=== PATIENT | female | born 1985 | race Caucasian/White ===

== ENCOUNTER → 2019-05-13 08:20 | Outpatient (BNVA) | payer OTHER, MEDICAID, SELFPAY | PROVIDERS: Family Provider Family Medicine; PCP Family Medicine; Referring Provider Obstetrics & Gynecology; Visit Provider Obstetrics & Gynecology | DX: R73.09 Other abnormal glucose (principal) | CPT/HCPCS: 36415; 82951; 82952 ==

== ENCOUNTER → 2019-05-27 11:29 | Outpatient (BNVA) | payer OTHER, SELFPAY | PROVIDERS: Family Provider Family Medicine; PCP Family Medicine; Visit Provider Obstetrics & Gynecology | DX: Z34.93 Encounter for supervision of normal pregnancy, unspecified, third trimester | CPT/HCPCS: 84315; 85027 ==

== ENCOUNTER → 2019-06-10 09:19 | Outpatient (BNVA) | payer OTHER, SELFPAY | PROVIDERS: Family Provider Family Medicine; PCP Family Medicine; Visit Provider Nurse Practitioner | DX: F41.1 Generalized anxiety disorder; F40.10 Social phobia, unspecified | CPT/HCPCS: 99213 ==

== ENCOUNTER → 2019-06-10 10:34 | Outpatient (BNVA) | payer OTHER, SELFPAY | PROVIDERS: Family Provider Family Medicine; PCP Family Medicine; Visit Provider Obstetrics & Gynecology Female Pelvic Medicine and Reconstructive Surgery | DX: Z01.89 Encounter for other specified special examinations (principal) | CPT/HCPCS: 84315 ==

== ENCOUNTER → 2019-06-24 10:06 | Outpatient (BNVA) | payer OTHER, SELFPAY | PROVIDERS: Family Provider Family Medicine; PCP Family Medicine; Visit Provider Obstetrics & Gynecology | DX: Z34.83 Encounter for supervision of other normal pregnancy, third trimester (principal) | CPT/HCPCS: 84315; 87081 ==

== ENCOUNTER → 2019-07-01 11:30 | Outpatient (BNVA) | payer OTHER, SELFPAY | PROVIDERS: Family Provider Family Medicine; PCP Family Medicine; Visit Provider Obstetrics & Gynecology | DX: Z01.89 Encounter for other specified special examinations (principal) | CPT/HCPCS: 84315 ==

== ENCOUNTER → 2019-07-08 10:11 | Outpatient (BNVA) | payer OTHER, SELFPAY | PROVIDERS: Family Provider Family Medicine; PCP Family Medicine; Visit Provider Obstetrics & Gynecology | DX: Z01.89 Encounter for other specified special examinations (principal) | CPT/HCPCS: 84315 ==

== ENCOUNTER → 2019-07-15 14:04 | Outpatient (BNVA) | payer OTHER, SELFPAY | PROVIDERS: Family Provider Family Medicine; PCP Family Medicine; Visit Provider Obstetrics & Gynecology | DX: Z01.89 Encounter for other specified special examinations (principal) | CPT/HCPCS: 84315 ==

== ENCOUNTER → 2019-07-19 10:15 | Outpatient (BNVA) | payer OTHER, MEDICAID, SELFPAY | PROVIDERS: Family Provider Family Medicine; PCP Family Medicine; Visit Provider Obstetrics & Gynecology | DX: O48.0 Post-term pregnancy (principal) | CPT/HCPCS: 76816; 76819; 84315 ==

== ENCOUNTER 2019-07-26 12:34 | Inpatient (IN) | payer OTHER, MEDICAID, SELFPAY ==
[2019-07-26] VITALS (53 sets, daily range): BP systolic 0–146; BP diastolic 0–91; PULSE 66–102; RESP 16–18; TEMP 37.1–37.7; BMI 31.4
--- NOTE | 2019-07-26 12:54 | US_ITS ---
WS: [id number] OB ultrasound for biophysical profile, 07/26/2019 Clinical Data: Comparison: OB ultrasound, 07/19/2019 Findings: There is a single intrauterine in the vertex presentation. The heart rate is 133 beat s per minute. The cervical length is 3.3 and it is closed. The placenta is anterior and fundal. The biophysical profile is 8 of 8 with normal scores for breathing, movement, posture and tone and amniotic fluid volume. US/US OB BPP wo [place]ST [address]250 Impression: 1. Single intrauterine in vertex presentation. 2. Biophysical profile 8 of 8. 3. heart rate 133 beats per minute.
--- NOTE | 2019-07-26 13:09 | P.ANESASSM_ITS ---
Pre-Anesthetic Assessment Pre-Anesthetic Assessment: Height/Weight: Height 1.68 m Pulse BP 102 H 125/90 07/26/19 12:51 07/26/19 12:51 Preop Diagnosis: labor pain Proposed Procedure: HITESH Was Beta Gretta taken within 24 hours: N/A Last Intake: 09:30 Social: Social History: No alcohol and No tobacco Exam: Pre-Anes Outpt Exam: alert, oriented x 3, clear to auscultation bilaterally and regular rate & rhythm Airway: Submandibular: WNL Cervical ROM: WNL MP: 2 Dentition: Full History/ROS: No significant history except as noted and No significant complaints Pulmonary: Pulmonary: None reported CV/HEM: CV/HEM: None reported : : None reported Hepatic: Hepatic: None reported GI: GI: GERD Comments: occasionally, not treated Metabolic: Metabolic: None reported Musc/skel: Musc/skel: None reported Neuropsych: Neuropsych: Anxiety Anesthetic Plan: ASA status: 2 Anesthesia: Anesthesia Evaluation and Regional (specify below) Other: HITESH Risk of > 500 ml blood loss (7ml/kg in c hildren): No PFSH Anesthesia PFSH: Social History Smoking and tobacco status: never smoked Alcohol intake: never Data Anesthesia Cardiac Studies: No Data to Display
[2019-07-26 14:18] LABS: Basophils % 0.4 %; Eosinophils % 0.1 %; Hematocrit 33.9 % (37.0-47.0); Hemoglobin 10.5 g/dL (11.5-15.3); Lymphocytes # 1.2 10^3/uL (0.8-4.8); Lymphocytes % 15.6 %; Mean Corpuscular Hemoglobin 26.8 pg (28.0-34.0); Mean Corpuscular Volume 86.5 fL (81-99); Mean Platelet Volume 11.4 fL (7.4-10.4); Monocytes # 0.6 10^3/uL (0.2-0.9); Monocytes % 7.6 %; Neutrophils # 5.8 10^3/uL (1.8-7.7); Neutrophils % 75.4 %; Nucleated Red Blood Cells % 0 %; Platelet Count 160 10^3/cmm (130-400); Red Blood Count 3.92 10^6/uL (4.1-5.3); Red Cell Distribution Width 20.6 % (12.1-15.1); White Blood Count 7.7 10^3/uL (4.0-10.0)
[2019-07-26] MEDS: oxytocin 30 UNIT/500 ML BAG IV (14:45)
[2019-07-26] MEDS: dextrose 5%-lactated ringers 1,000 ML 125 ML IV ×2 (14:46→22:51)
--- NOTE | 2019-07-26 19:13 | P.HP_ITS ---
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 She was seen in the office today by Dr. Frank for routine visit. Since she was 41 weeks today, he scheduled her to be induced later today. She was without complaints. She was reporting occasional contractions. She had denied any vaginal bleeding or leaking of fluid. She reported the baby had been moving well. Past Medical History: Significant for generalized anxiety disorder with social phobia. She denies any medical problems in the way of high blood pressure, diabetes, heart, lung, liver, or kidney problems. Past Surgical History: Patient has had a prior section on 01/15/2016. Family History: This is significant for hypertension in her mother and heart disease in her maternal grandmother. Social History: Denies tobacco, alcohol, or drug use. Present Details : 2 Para: 1 Labs Rubella: Immune RPR: Negative GBS: Negative Review of Systems Const: Denies: fever or chills ENMT: Denies: throat pain or nasal congestion Card: Denies: chest pain, palpitations or lightheadedness Resp: Denies: shortness of breath, productive cough, non-productive cough or wheezing GI: Denies: abdominal pain, nausea, vomiting or diarrhea : Reports: urinary frequency; Denies: painful urination, blood in urine, genital itching, vaginal bleeding or vaginal discharge Neuro: Denies: headache, dizziness or seizure-like activity Psych: Reports: depression (Controlled with medication); Denies: anxiety Endo: Denies: cold intolerance Cristian/Lymph: Denies: easy bruising or easy bleeding Medications/Allergies Allergies Allergy/AdvReac Type Severity Reaction Status Date / Time No Known Allergies Allergy Verified 07/26/19 15:03 Care BRIANNA Calculator Estimated Delivery Date Method Current WG Current Estimate 07/19/19 LMP (Certain) 41w 0d Expected Delivery Route/Plan Specific Issues/Plans Risk factors: Previous section (LTCS), Depression OB Visit Log Initial Weight: Not Recorded Date -?-?-?-?-?-?-?-?-?-?-?- EGA Weight BP Albumin -?-?-?-?-?-?--?-?-?-?-?-?- Glucose Nitrate -?-?--?-?-?-?-?-?-?-?-?-?- Blood Fun Ht PRES HR MVMT -?--?-?-?-?-?-?-?-?-?-?-?- Edema Dilation Effacement -?-?-?-?-?-?-?-?-?-?-?-?- Station 11/26/18 -?-?-?-?-?-?-?-?-?-?-?- 6w 3d -?-?-?-?-?-?-?-?-?--?-?-?- -?-?-?-?-?-?-?-?-?-?-?-?- -?-?-?-?-?-?-?-?-?-?-?-?- -?-?-?-?-?-?-?-?-?-?-?-?- 12/17/18 -?-?-?-?-?-?-?-?-?-?-?- 9w 3d 171 lb 140/80 neg neg -?-?-?-?-?-?-?-?-?-?-?-?- neg -?-?-?-?-?-?-?-?-?-?-?-?- -?-?-?-?-?-?-?-?--?-?-?-?- Hands: Face: Feet:0 not examined -?-?-?-?-?-?-?-?-?-?-?-?- 12/31/18 -?-?-?-?-?-?-?-?-?-?-?- 11w 3d 170 lb 122/74 neg neg -?-?-?-?-?-?-?-?-?-?-?-?- neg -?-?-?-?-?-?-?-?-?-?-?-?- 11 inconclusive 168 -?-?-?-?-?-?-?-?-?-?-?-?- Hands:0 Face:0 Feet:0 not examined not examined -?-?-?-?-?-?-?-?-?-?-?-?- 01/28/19 -?-?-?-?-?-?-?-?-?-?-?- 15w 3d 172 lb 135/85 neg neg -?-?-?-?-?-?-?-?-?-?-?-?- neg -?-?-?-?-?-?-?-?-?-?-?-?- 16 145 -?-?-?-?-?-?-?-?-?-?-?-?- Hands: Face: Feet:0 closed uneffaced -?-?-?-?-?-?-?-?-?-?-?-?- 03/11/19 -?-?-?-?-?-?-?-?-?-?-?- 21w 3d 178 lb 12.8 oz 120/64 neg neg -?-?-?-?-?-?-?-?-?-?-?-?- neg -?-?-?-?-?-?-?-?-?-?-?-?- 21 vertex 143 present -?-?-?-?-?-?-?-?-?-?-?-?- Hands:0 Face:0 Feet:0 not examined not examined -?-?-?-?-?-?-?-?-?-?-?-?- 04/08/19 -?-?-?-?-?-?-?-?-?-?-?- 25w 3d 183 lb 12.8 oz 120/80 neg neg -?-?-?-?-?-?-?-?-?-?-?-?- neg -?-?-?-?-?-?-?-?-?-?-?-?- 25 breech 145 present -?-?-?-?-?-?-?-?-?-?-?-?- Hands:0 Face:0 Feet:0 not examined not examined -?-?-?-?-?-?-?-?-?-?-?-?- 05/02/19 -?-?-?-?-?-?-?-?-?-?-?- 28w 6d 186 lb 118/80 trace neg -?-?-?-?-?-?-?-?-?-?-?-?- neg -?-?-?-?-?-?-?-?-?-?-?-?- 29 150 present -?-?-?-?-?-?-?-?-?-?-?-?- Hands:0 Face:0 Feet:0 -?-?-?-?-?-?-?-?-?-?-?-?- 05/13/19 -?-?-?-?-?-?-?-?-?-?-?- 30w 3d 189 lb 9.6 oz 122/76 neg neg -?-?-?-?-?-?-?-?-?-?-?-?- neg -?-?-?-?-?-?-?-?-?-?-?-?- 30 vertex 145 present -?-?-?-?-?-?-?-?-?-?-?-?- Hands:0 Face:0 Feet:0 not examined not examined -?-?-?-?-?-?-?-?-?-?-?-?- 05/27/19 -?-?-?-?-?-?-?-?-?-?-?- 32w 3d 188 lb 3.2 oz 120/80 neg neg -?-?-?-?-?-?-?-?-?-?-?-?- neg -?-?-?-?-?-?-?-?-?-?-?-?- 32 132 present -?-?-?-?-?-?-?-?-?-?-?-?- Hands:0 Face:0 Feet:0 -?-?-?-?-?-?-?-?-?-?-?-?- 06/10/19 -?-?-?-?-?-?-?-?-?-?-?- 34w 3d 192 lb 3.2 oz 120/72 neg neg -?-?-?-?-?-?-?-?-?-?-?-?- neg -?-?-?-?-?-?-?-?-?-?-?-?- 34.5 132 present -?-?-?-?-?-?-?-?-?-?-?-?- Hands:0 Face:0 Feet:0 -?-?-?-?-?-?-?-?-?-?-?-?- 06/24/19 -?-?-?-?-?-?-?-?-?-?-?- 36w 3d 193 lb 124/80 neg neg -?-?-?-?-?-?-?-?-?-?-?-?- neg -?--?-?-?-?-?-?-?-?-?-?-?- 36 143 present -?-?-?-?-?-?-?-?-?-?-?-?- Hands:0 Face:0 Feet:0 -?-?-?-?-?-?-?-?-?-?-?-?- 07/01/19 -?-?-?-?-?-?-?-?-?-?-?- 37w 3d 194 lb 120/80 neg neg -?-?-?-?-?-?-?-?-?-?-?-?- neg -?-?-?-?-?-?-?-?-?-?-?-?- 37 156 present -?-?-?-?-?-?-?-?-?-?-?-?- Hands:0 Face:0 Feet:0 -?-?-?--?-?-?-?-?-?-?-?-?- 07/08/19 -?-?-?--?-?-?-?-?-?-?-?- 38w 3d 194 lb 9.6 oz 118/74 -?-?-?-?-?-?-?-?-?-?-?-?- -?-?-?-?-?-?-?-?-?-?-?-?- 38 130 present -?-?-?-?-?-?-?-?-?-?-?-?- Hands:trace Face:0 Feet:trace -?-?-?-?-?-?-?-?-?-?-?-?- 07/15/19 -?-?-?-?-?-?-?-?-?-?-?- 39w 3d 196 lb 128/76 Neg (Ne gative) -?-?-?-?-?-?-?-?-?-?-?-?- Norm (Normal) Negative (Negat maggy) -?-?-?-?-?-?-?-?-?-?-?-?- Neg (Negative) 37 Vtx 140 active -?-?-?-?-?-?-?-?-?-?-?-?- absent FT 0 -?-?-?-?-?-?-?-?-?-?-?-?- 0 07/19/19 -?-?-?-?-?-?-?-?-?-?-?- 40w 0d 195 lb 120/70 Neg (Ne gative) -?-?-?-?-?-?-?-?-?-?-?-?- Norm (Normal) Negative (Negat maggy) -?-?-?-?-?-?-?-?-?-?-?-?- Neg (Negative) 39 Vtx 138 active -?-?-?-?-?-?-?-?-?-?-?-?- absent FT 0 -?-?-?-?-?-?-?-?-?-?-?-?- 0 07/26/19 -?-?-?-?-?-?-?-?-?-?-?- 41w 0d 195 lb 124/80 Neg (Ne gative) -?-?-?-?-?-?-?-?-?-?-?-?- Norm (Normal) Negative (Negat maggy) -?-?-?-?-?-?-?-?-?-?-?-?- Neg (Negative) 40 Vertex 140 active -?-?-?-?-?-?-?-?-?-?-?-?- absent 1 50 -?-?-?-?-?-?-?-?-?-?-?-?- +1 07/26/19 -?-?-?-?-?-?-?-?-?-?-?- 41w 0d 195 lb 108/61 125/90 0/0 127/91 132/86 130/80 113/66 0/0 0/0 138/77 0/0 112/70 121/73 117/75 0/0 110/67 127/81 127/72 121/81 125/79 128/78 0/0 135/79 0/0 146/75 0/0 134/76 0/0 131/76 133/76 142/81 0/0 125/69 127/78 0/0 -?-?-?-?-?-?-?-?-?-?-?-?- -?-?-?-?-?-?-?-?-?-?-?-?- Vertex 135 130 130 135 135 130 135 135 140 135 135 140 140 140 145 135 135 135 140 150 -?-?-?-?-?-?-?-?-?-?-?-?- -?-?-?-?-?-?-?-?-?-?-?-?- -3 Notes Visit Date: 07/26/19 No visit notes to display Visit Date: 07/26/19 ALBERTO at 41 weeks. Patient was requesting TOLAC/. She was counseled regarding induction during TOLAC/. Carballo score 7. If the Carballo score is 8 or greater the chances of having a vaginal delivery are good and the cervix is said to be favorable or ripe for induction. A simplified Carballo score of 5 had a similar predictive value of having a successful vaginal delivery as an original Carballo score of greater than 8. Simon Frank MD on 07/26/19 Visit Date: 07/19/19 ALBERTO at 40 weeks +0, no complaints. Patient was counseled regarding elective induction at 41 weeks. She refers she wants to wait [place] I allowed time without increasing risk of complication and will proceed with the elective induction at 41 weeks. Simon Frank MD on 07/19/19 Visit Date: 07/15/19 No visit notes to display Visit Date: 07/08/19 No visit notes to display Visit Date: 07/01/19 No visit notes to display Visit Date: 06/24/19 No visit notes to display Visit Date: 06/10/19 - ?ALBERTO at 34 3/7 weeks. The patient was counseled regarding care, signs and symptoms of labor. - ?Weight gain expectations through the rest of the discussed. - ?Follow-up appointment in approximately 2 weeks. Patient expressed desire for . ?Today we did discuss risks versus benefits of [place] she understands the risk of uterine rupture with /maternal morbidity/mortality less than 1%. ? calculator puts her likelihood of successful at 66.. ?We also discussed that should she not go in spontaneous labor by 40-41 weeks gestation we will rediscuss her options with possible recommendation for repeat . ?Pending cervical examination and Carballo score. Documented hemoglobin of 9.4 recommend FeSO4 325 mg p.o. twice daily would recommend repeat CBC at 38 weeks to evaluate hemoglobin hematocrit with potential need for iron infusion prior to surgery Visit Date: 05/27/19 No visit notes to display Visit Date: 05/13/19 ALBERTO at 30 3/7 weeks. The patient was counseled regarding care, signs and symptoms of labor. ?Patient was counseled regarding gestational diabetes. ?3 hour GTT performed today. Visit Date: 05/02/19 ROP at 28-6/7 WG. ?Complained of Cold - OTC medications discussed. ? labor precautions discussed. ?Weight gain expectations discussed. ?Pertussis vaccine recommended. ?Elevated GCT - scheduled for 3-hour GTT. ?Plan hemogram at that time. Visit Date: 04/08/19 ALBERTO at 25 3/7 weeks. The patient was counseled regarding care, signs and symptoms of labor. Visit Date: 03/11/19 ALBERTO at ?21 3/7 weeks. The patient was counseled regarding care, signs and symptoms of labor. ?Patient was counseled regarding ultrasound findings essentially normal and correlate with dates however 4 chamber view of the heart and outflow tract was not fully visualized due to position, recommended repeating ultrasound. Visit Date: 01/28/19 OB exam at 15.3 WG - Anxiety; managed with citalopram; continue - ASCUS with negative high risk HPV Pap; Cotest in 3 years - Exam consistent with dates - GC and Chlamydia swab today - labs completed and normal--reviewed with patient today - SAB precautions reviewed - Desires panorama - Anatomy scan at next visit Visit Date: 12/31/18 OBI at 9.3 WG--------------> 33 y/o with a LMP of 10/12/2018, EDC of 07/19/2019. - Mild nausea; managed with diet - Anxiety; Present prepregnancy--was managed with Celexa and Klonopin. ?She stopped the Klonopin prior to conception and reports weaning off the Celexa at about 6 weeks gestation. We discussed the risk of SSRI therapy in the first trimester although we prefer her to have symptom management. ?She reports feeling managed without medication at this time and is aware that medication may need to be restarted at some point in the and very highly likely restarted prior to delivery; advised to remain off the Klonopin as this is not advised in - Constipation; dietary and medical management discussed -Ob packet provided. Reviewed routine vist schedule, labs, appro alivia medications in , discussed the importance of avoiding nicotine/alcohol/drugs and the effects this has on her and the , and when to notify the doctor. Medical and obstetrical history reviewed. ? -Continue vitamins. - labs at next visit; discussed NIPT, QUAD, AFP, CF. All questions answered to her satisfaction. Greater than 50% of the visit was spent in counseling and coordinating obstetrical care. Total visit time: 30 minutes. Visit Date: 12/17/18 OBI at 9.3 WG--------------> 33 y/o with a LMP of 10/12/2018, EDC of 07/19/2019. - Mild nausea; managed with diet - Anxiety; Present prepregnancy--was managed with Celexa and Klonopin. ?She stopped the Klonopin prior to conception and reports weaning off the Celexa at about 6 weeks gestation. We discussed the risk of SSRI therapy in the first trimester although we prefer her to have symptom management. ?She reports feeling managed without medication at this time and is aware that medication may need to be restarted at some point in the and very highly likely restarted prior to delivery; advised to remain off the Klonopin as this is not advised in - Constipation; dietary and medical management discussed -Ob packet provided. Reviewed routine vist schedule, labs, approved medications in , discussed the importance of avoiding nicotine/alcohol/drugs and the effects this has on her and the , and when to notify the doctor. Medical and obstetrical history reviewed. ? -Continue vitamins. - labs at next visit; discussed NIPT, QUAD, AFP, CF. All questions answered to her satisfaction. Greater than 50% of the visit was spent in counseling and coordinating obstetrical care. Total visit time: 30 minutes. Visit Date: 11/26/18 No visit notes to display Vitals/I&O/Wt Last Vital Signs Temp 98.8 F 07/26/19 19:09 Pulse 84 07/26/19 19:05 Resp 18 07/26/19 19:09 BP 142/81 07/26/19 19:05 07/26/19 07/26/19 07/26/19 06:59 14:59 22:59 Intake Total 201.25 / 201.25 Balance 201.25 / 201.25 Weight last 48 hrs Weight 195 lb Physical Exam Const: COMMON NORMALS: no apparent distress, average body habitus, alert and well nourished GENERAL APPEARANCE: well developed ORIENTATION/CONSCIOUSNESS: Yes oriented to person, Yes oriented to place and Yes oriented to time Neck/C-Spine: COMMON NORMALS: thyroid normal GENERAL: Yes trachea midline THYROID: thyroid normal Resp: COMMON NORMALS: normal respiratory effort and clear to auscultation bilaterally AUSCULTATION: clear to auscultation bilaterally Cardio: COMMON NORMALS: regular rate, regular rhythm, no gallops, no murmurs and no rub RATE: regular rate RHYTHM: regular rhythm PERIPHERAL PULSES: posterior tibial pulses present GI: COMMON NORMALS: soft to palpation, non-tender, no hepatosplenomegaly and no masses (Except for nontender gravid uterus) AUSCULTATION: Yes normoactive bowel sounds PALPATION: Yes soft, Yes no hepatosplenomegaly and No hernia : EXTERNAL FEMALE EXAM: No hernia UTERUS PALPATION: No uterus tender Neuro: SENSORIUM/ORIENTATION: Yes alert, Yes oriented to person, Yes oriented to place and Yes oriented to time Psych: COMMON NORMALS: affect normal MOOD & AFFECT: Yes euthymic mood Skin: COMMON NORMALS: no rashes or lesions noted GENERAL SKIN EXAM: no rashes or lesions noted Data : 07/26/19 14:00 A&P Assessment and plan (1) Encounter for supervision of other normal , third trimester: 3, para 1-0-1-1 with a LMP of 10/12/2018 and an EDC of 07/19/2019 based on LMP at 41-0/7 weeks gestation. Patient seen by Dr. Frank in the office today. He reported that she was 50% effaced and 1 cm dilated. He made arrangements for her to come to the hospital today for induction of labor. He provided initial orders. Care was then taken over by Dr. Clarke who started her on low-dose Pitocin for cervical ripening. She is currently on Pitocin at a rate of 6 milliunits/min with the plan for her to stay on this dose through the night for cervical ripening. By tomorrow morning if she is not made significant cervical change, then cervical ripening balloon may be placed. This plan was discussed with the patient and her partner and they are in agreement with the plan of care at this time. Status: Acute Code(s): Z34.83 - Encounter for supervision of other normal , third trimester (2) Anemia affecting in third trimester: 12/31/2018: H&H 13.1/38.2 05/27/2019: H&H 9.4/30.1, MCV 85.3. Patient started on twice a day iron. H&H today was 10.5 and 33.9. Status: Acute Code(s): O99.013 - Anemia complicating , third trimester (3) Maternal care for unspecified type scar from previous delivery: Operative report was reviewed (scanned into [employer]) with confirmed low transverse uterine incision. Surgery performed due to breech presentation with unsuccessful attempted external cephalic version version. Discussed with patient risks associated with attempted . Risk for uterine rupture was discussed. Changes in the risk with inducing labor was discussed. Questions were answered. Patient wishes to attempt vaginal delivery. Status: Acute Code(s): O34.219 - Maternal care for unspecified type scar from previous delivery Attestations Medical Necessity Statement*: Patient is been admitted for cervical ripening and induction of labor due to 41-week gestation . Coding Level of Care Code Acute Profiling Machine Set Up Operator for Renny Fwd Diagnoses Encounter for supervision of other normal , third trimester Z34.83 Anemia affecting in third trimester O99.013 Maternal care for unspecified type scar from previous delivery O34.219
[2019-07-27] VITALS (161 sets, daily range): BP systolic 0–148; BP diastolic 0–84; PULSE 61–138; RESP 16–18; TEMP 37.1–39.2; O2SAT 87–98
[2019-07-27] MEDS: fentaNYL 50 mcg/mL INJ 2mL IV (01:08)
[2019-07-27] MEDS: lactated ringers 1,000 ML 999 ML IV ×2 (01:16→17:00)
--- NOTE | 2019-07-27 02:43 | P.ANES_ITS ---
Anesthesia Procedures Procedure/Date: 07/27/19 Epidural: Time Out Performed: Yes Consents Signed: Procedure Consent Consent: requested by attending/covering physician and patient agrees to proceed Lumbar Level: L3-L4 Epidural position: sitting Epidural procedure: sterile prep of area, 1% lidocaine to numb the area, 18 g needle, negative for p aresthesia passed, test dose given, 1.5% xylocaine 1:200k epi, 0.2% Ropivacaine bolus ml, placed PCEA, no systemic response, sterile dressing applied, L.U.D. no apparent complications and 0.2% Ropiavacaine @ mls/hr Additional Comments: Fentanyl 100 mcg and Ropiv 2% 8cc bolus> pump started at 13cc?hour
[2019-07-27] MEDS: ondansetron 2 mg/ML SDV 2 mL 4 MG IVP ×2 (03:31→22:04)
[2019-07-27] MEDS: dextrose 5%-lactated ringers 1,000 ML 125 ML IV ×3 (06:09→18:35)
--- NOTE | 2019-07-27 09:27 | P.PN_ITS ---
Subjective Subjective: Interval history: 34-year-old female 3, para 1-0-1-1 with an LMP of 10/12/2018 and an EDC of 07/19/2019 based on LMP and consistent with a 19-week ultrasound. This places the patient at 41-1/7-week gestation today. Patient reports feeling comfortable this morning. States feeling a little bit of pressure at times at the most with her contractions. Reports feeling movement. Vitals/I&O/Wt Last Vital Signs Temp 99.4 F 07/27/19 08:58 Pulse 85 07/27/19 09:15 Resp 16 07/27/19 08:58 BP 116/61 07/27/19 09:15 Pulse Ox 98 07/27/19 02:27 07/26/19 07/27/19 07/27/19 22:59 06:59 14:59 Intake Total 1007.50 / 1007.50 1753.533 / 2761.033 Balance 1007.50 / 1007.50 1753.533 / 2761.033 Weight last 48 hrs Weight 195 lb Physical Exam Const: COMMON NORMALS: no apparent distress, average body habitus, alert and well nourished GENERAL APPEARANCE: well developed ORIENTATION/CONSCIOUSNESS: Yes oriented to person, Yes oriented to place and Yes oriented to time : MANUAL OB EXAM: dilated 2 cm, effaced (60), station -2 and other (Soft, mid position) AMNIOTIC FLUID: no fluid Neuro: SENSORIUM/ORIENTATION: Yes alert, Yes oriented to person, Yes oriented to place and Yes oriented to time Psych: COMMON NORMALS: affect normal MOOD & AFFECT: Yes euthymic mood Urinary Catheter Management^: Mooney: Cath Placed During This Visit: yes Urinary Catheter Date of Insertion: 07/27/19 Urinary Catheter Time of Insertion: 03:29 Data : 07/26/19 14:00 Other data: Monitoring: heart rate 130-140s with moderate variability and accelerations present. No decelerations present at this time. Contractions every 4 to 5 minutes. Patient on 3 milliunits/min of Pitocin. A&P Assessment and plan (1) Encounter for supervision of other normal , third trimester: at 41-1/7 weeks gestation. Patient was admitted to the hospital yesterday afternoon and was started on low- dose Pitocin for cervical ripening. She made some change during the night and became significantly more uncomfortable. As a result epidural was placed. However, due to some questionable late decelerations, Pitocin was dropped in half and is been held at that through the rest of the night. The questionable late decelerations had resolved. Baby has then been reassuring the rest of the time. At my exam this morning, she is approximately 60% effaced, 2 cm dilated, -2 station, soft, and mid position. With the prior section, I do not want to become aggressive with Pitocin and as a result, I decided to use a cervical ripening catheter. This was discussed with the patient and she is in agreement. Pitocin will be continued after placement. Placement of the catheter was discussed with patient and verbal consent given. Double-balloon cervical ripening catheter was placed through the cervix. The inner balloon was inflated to 80 mL. The outer balloon was inflated to 60 mL. Patient tolerated this well. Patient will be monitored for contractions. If the contractions stay about 4 to 5 minutes are further apart, Pitocin dose will be slowly increased until adequate pattern is obtained. Status: Acute Code(s): Z34.83 - Encounter for supervision of other normal , third trimester (2) Maternal care for unspecified type scar from previous delivery: Operative report was reviewed (scanned into [employer]) with confirmed low transverse uterine incision. Surgery performed due to breech presentation with unsuccessful attempted external cephalic version version. Discussed with patient risks associated with attempted . Risk for uterine rupture was discussed. Changes in the risk with inducing labor was discussed. Questions were answered. Patient wishes to attempt vaginal delivery. Status: Acute Code(s): O34.219 - Maternal care for unspecified type scar from previous delivery Attestations 2 Medical Necessity Statement*: Patient's labor is in the process of being induced. Coding Level of Care Code Acute Car Customizer for Renny Willson Diagnoses Encounter for supervision of other normal , third trimester Z34.83 Maternal care for unspecified type scar from previous delivery O34.219
--- NOTE | 2019-07-27 19:45 | PC.NURSE ---
Dr. Frank at nurses station, strip reviewed and MD orders to update once SVE is done at 2030
[2019-07-27] MEDS: ampicillin 2,000 MG in sodium chloride 0.9% (plus) 50 ML 100 MG IV (21:29)
[2019-07-27] MEDS: acetaminophen 500 mg Tablet 1000 MG PO ×2 (21:41→22:05)
--- NOTE | 2019-07-27 22:09 | PM.MISC ---
Miscellaneous Note Purpose of Documentation: epidural assessment/bolus. Note: called to pt room for eval of increasing pain with epidural. pt level assessed and repositioned Bolused 100mcg Fentanyl and 7cc 2% Lidocaine PF over 8 min. VSS and monitored throughout. Last BP checked was 129/74
--- NOTE | 2019-07-27 23:05 | PC.NURSE ---
Dr. Frank and bedside to assess patient and SVE.
--- NOTE | 2019-07-27 23:20 | PC.NURSE ---
MD orders to stop pushing at this time and to let the patient labor down
[2019-07-28] VITALS (29 sets, daily range): BP systolic 0–152; BP diastolic 0–94; PULSE 6–86; RESP 15–18; TEMP 36.4–37.8; O2SAT 92–100
--- NOTE | 2019-07-28 00:33 | PC.NURSE ---
Dr. Frank at bedside to assess maternal pushing effort and decent. MD orders at this time to prep the patient for a due to failure of decent.
[2019-07-28] MEDS: citric acid-sodium citrate 30 mL UDC PO (00:49)
[2019-07-28] MEDS: famotidine 20 mg/2 mL INJ IVP (00:49)
[2019-07-28] MEDS: metoclopramide 5 mg/mL SDV 2 mL 10 MG IVP (00:50)
[2019-07-28] MEDS: ampicillin 1,000 MG in sodium chloride 0.9% (plus) 50 ML 100 MG IV ×3 (01:43→08:57)
--- NOTE | 2019-07-28 01:55 | PC.NURSE ---
Dr. Frank administered Experel at this time.
--- NOTE | 2019-07-28 02:16 | PM.OP ---
Operative Report Date of procedure: July 28, 2019 Pre-op Diagnosis: Term , Previous C/S, chorioamnionitis, failure To descend Post-op diagnosis: same Post-op Findings: Female , nuchal cord ?1, meconium, Procedure Done: Repeat low-transverse delivery Surgeon: Simon Frank M.D. Anesthesia: General Estimated blood loss (mL): 800 Condition: stable Disposition: PACU Brief History: 34-year-old female with previous delivery at 41 weeks, tried TOLAC, but failure to descend Procedure: After recommendation of delivery due to failure to descend and nonreassuring status the patient was counseled regarding delivery and she signed the informed consent, the patient was taken to the operating room and anesthesia was initiated. She was placed in the dorsal supine position with a left lateral tilt. The abdomen was prepped and draped in the usual sterile manner. A time-out procedure was performed. A Pfannenstiel skin incision was made with the scalpel and carried through to the underlying layer of fascia with the Bovie. The fascia was nicked in the midline and the incision extended laterally with the Schwab scissors. The superior aspect of the fascial incision was then grasped with Beto clamps and elevated and the underlying rectus muscle dissected off bluntly and sharp with schwab scissors dense adhesions. Attention was then turned to the inferior aspect of the incision which, in similar fashion, was grasped and tented up with Beto clamps and the rectus muscle dissected bluntly. The rectus muscles were then in the midline and the peritoneum identified, tented up and entered sharply with Metzenbaum scissors. The peritoneal incision was then extended superiorly and inferiorly with good visualization of the bladder. The Edison O retractor was then inserted and the vesicouterine peritoneum identified, grasped with pickups and entered sharply with Metzenbaum scissors. This incision was then extended laterally and the bladder flap created digitally. The bladder blade was then reinserted and the uterus incised in a low transverse fashion with the scalpel. The uterine incision was then extended with the bandage scissors. The bladder blade was removed and the infant was then delivered in the cephalic presentation atraumatically at 0816 hours. The nose and the mouth were suctioned with bulb and the cord clamped and cut. The cord was normal and had three vessels. Amniotic fluid was clear. The placenta was then removed manually and the uterus exteriorized and cleared of all clots and debris. The uterine incision was repaired with 0 Vicryl in a running-locked fashion. A second layer of the same suture was used to obtain excellent hemostasis. The gutters were cleared of all clots. Excellent hemostasis was noted. The uterus was then returned to the abdomen. The rectus muscles were approximated with 3-0 chromic gut. The ON-Q pain management system placed. The fascia was reapproximated with 0 Vicryl in an interrupted running fashion. The skin was closed with Insorb?s subcuticular absorbable dakota. The patient tolerated the procedure well. The sponge, lap and needle counts were correct times three. The patient was given Ancef 2 gm intravenously immediately after delivery of the infant.
--- NOTE | 2019-07-28 05:32 | PC.NURSE ---
While patient taking her 1000mg Tylenol PO, one of the tablets fell into her cup of water and only 1 tablets for a total of 500mg was taken. New order placed and 1000mg pulled but only 500mg more taken for a total of Tylenol 1000mg PO. Second tablet returned to pharmacy.
[2019-07-28] MEDS: dextrose 5%-lactated ringers 1,000 ML 125 ML IV ×2 (05:44→15:01)
[2019-07-28] MEDS: docusate sodium 100 mg Capsule PO (08:58)
[2019-07-28] MEDS: ketorolac 30 mg/mL INJ IVP ×3 (08:58→22:34)
[2019-07-28] MEDS: prenatal vitamin Capsule 1 CAP PO (08:58)
[2019-07-28] MEDS: ferrous sulfate EC 325 mg Tablet PO (08:58)
[2019-07-28] MEDS: lanolin oint 7 gm 1 APPLIC TOPICAL (11:50)
--- NOTE | 2019-07-28 12:44 | PC.NURSE ---
THIS ICU CLERK WAS GETTING READY TO GET HER UP AND WALK. AND NOTICED THAT HER IV WAS LEAKING, THIS ICU CLERK TRIED TO CLEAN AREA UP AND TIGHTENED HUB AND IT WAS STILL LEAKING SO IV REMOVED WITH CATH INTACT.
[2019-07-28] MEDS: lactated ringers 1,000 ML 999 ML IV (15:01)
[2019-07-28 15:06] LABS: Hematocrit 28.5 % (37.0-47.0); Hemoglobin 8.8 g/dL (11.5-15.3); Mean Corpuscular HGB Conc 30.9 g/dL (30.0-36.0); Mean Corpuscular Hemoglobin 27.2 pg (28.0-34.0); Mean Corpuscular Volume 88.2 fL (81-99); Mean Platelet Volume 11.3 fL (7.4-10.4); Platelet Count 128 10^3/cmm (130-400); Red Blood Count 3.23 10^6/uL (4.1-5.3); Red Cell Distribution Width 21.1 % (12.1-15.1); White Blood Count 14.7 10^3/uL (4.0-10.0)
--- NOTE | 2019-07-28 15:09 | PC.NURSE ---
1450 IV RESTARTED IN RIGHT FOREARM WITH #20 JELCO LR BOLIS STARTED AT 1505. URINE OUTPUT STILL LOW 100ML IN 3 HOURS.
--- NOTE | 2019-07-28 18:28 | PC.NURSE ---
WENT TO GET PATIENT UP AND SHE WAS BREASTFEDING AGAIN. TOLD HER THAT SHE NEEDED TO GET UP AND WALK SOON BABY WAS DONE, BUT TO LET HER NURSE UNTIL SHE IS DONE.
[2019-07-29] VITALS: BP 120/81; PULSE 81; RESP 18; TEMP 36.5
[2019-07-29 04:30] VITALS: BP 118/69; PULSE 78; RESP 16; TEMP 36.7
--- NOTE | 2019-07-29 07:36 | P.PN_ITS ---
Subjective Subjective: Interval history: Feeling allot better than previous C/S. Vitals/I&O/Wt Last Vital Signs Temp 97.7 F 07/29/19 00:00 Pulse 81 07/29/19 00:00 Resp 18 07/29/19 00:00 BP 120/81 07/29/19 00:00 Pulse Ox 98 07/28/19 10:00 07/28/19 07/29/19 07/29/19 22:59 06:59 14:59 Intake Total 1000 / 2533.65 500 / 3033.65 Output Total 750 / 935 800 / 1735 Balance 250 / 1598.65 -300 / 1298.65 Physical Exam Narrative: EXAM NARRATIVE: GA; alert and oriented x 3 HEENT: normal Breasts: engorged Nipples - skin intact Lungs; clear to auscultation Heart: regular rhythm, no murmurs. Abd: Appropriately tender. BS+. Uterine fundus below umbilicus. No Fundal Tenderness. Perineum: normal lochia. Extremities: no edema, no cyanosis, no tenderness. Urinary Catheter Management^: Mooney: Cath Placed During This Visit: yes Reason for Continuing Indwelling Catheter: Other Urinary Catheter Date of Insertion: 07/28/19 Urinary Catheter Time of Insertion: 00:42 Data : 07/28/19 14:50 A&P Assessment and plan (1) Status post delivery: She status post low transverse repeat delivery Day 1. She is afebrile hemodynamically stable. Tolerating diet well. Ambulating with no difficulty. CD performed due to failure to descend. She was diagnosed with chorioamnionitis. Have been afebrile for the last 12 hours. Status: Acute Code(s): Z98.891 - History of uterine scar from previous surgery Attestations Medical Necessity Statement*: In my professional opinion for admitting diagnosis. Time Spent in Patient Care: 16 - 35 minutes (>than 50% of time spent in counselling and/or direct pt care on unit) . Coding Level of Care Code Acute Salesperson [employer] for Chg Fwd Diagnoses Status post delivery Z98.891
[2019-07-29 09:42] VITALS: BP 129/89; PULSE 108; RESP 16; TEMP 37.4
[2019-07-29] MEDS: HYDROcodone-acetaminophen 5-325 mg Tablet PO (09:48)
[2019-07-29] MEDS: prenatal vitamin Capsule 1 CAP PO (09:49)
[2019-07-29] MEDS: docusate sodium 100 mg Capsule PO ×2 (09:49→18:34)
[2019-07-29] MEDS: ferrous sulfate EC 325 mg Tablet PO ×2 (09:49→18:34)
[2019-07-29 16:14] VITALS: BP 131/90; PULSE 85; RESP 16
[2019-07-29 21:00] VITALS: BP 131/86; PULSE 97; RESP 18; TEMP 36.5
[2019-07-30 04:35] VITALS: BP 131/87; PULSE 86; RESP 18; TEMP 36.9
[2019-07-30] MEDS: prenatal vitamin Capsule 1 CAP PO (08:45)
[2019-07-30] MEDS: docusate sodium 100 mg Capsule PO ×2 (08:45→18:21)
--- NOTE | 2019-07-30 09:47 | PM.DELIVERY ---
 Delivery Note: Date of delivery: July 28, 2019 Estimated blood loss (mL): 800 Pre-Delivery Course: Patient was failed underwent delivery for CPD. Intrapartum diagnosed with chorioamnionitis Delivery: section, repeat Post-Delivery Status: day 2. Patient is up and about in room no complaints denies fevers chills she is having bowel movements voiding well. She has been afebrile for 36 hours has yet to make the 48-hour michael for being afebrile. Baby is still on antibiotics and will be through 72 hours. Discussed with mother and father recommend continue observation for possible signs of fever. Must maintain a high degree of suspicion for endomyometritis due to failed status, length of labor, multiple exams and chorioamnionitis diagnosed in labor. Her postoperative hemoglobin was 8.8. She does not have any dizziness or tachycardia. Physical examination: Alert and oriented no acute distress ambulatory in room HEENT grossly normal Lungs clear to auscultation Heart regular sinus rhythm Abdomen mildly obese soft nontender good bowel sounds. Incision is clean and dry with some mild bruising. Incision is intact. Appropriately tender Extremities has some mild lower extremity edema no calf tenderness negative Homans A&P Assessment and plan (1) Status post delivery: day patient is at risk for postsurgical endomyometritis. Has not yet been afebrile for 48 hours we will continue observation through tomorrow. Baby is receiving antibiotics until 72 hours Status: Acute Code(s): Z98.891 - History of uterine scar from previous surgery (2) Anemia: Patient has postoperative anemia mild hemoglobin now 8.8 she is asymptomatic we will place her on p.o. ferrous sulfate. No active bleeding at this time. Status: Acute Code(s): D64.9 - Anemia, unspecified Coding Level of Care Code Acute Hemotherapist for [facility] Fwd Medical Decision Making Low Complexity Diagnoses Status post delivery Z98.891 Anemia D64.9 Time Spent (min) 20 Comment 20 minutes [id number] time greater than 50% spent in counseling for course risk of endomyometritis.
[2019-07-30 10:25] VITALS: BP 142/84; PULSE 88; RESP 16; TEMP 36.6
[2019-07-30 16:15] VITALS: BP 131/86; PULSE 67; RESP 18; TEMP 36.9
[2019-07-30] MEDS: simethicone 80 mg Chew PO (20:05)
[2019-07-30] MEDS: ferrous sulfate EC 325 mg Tablet PO (20:37)
[2019-07-30 20:39] VITALS: BP 133/84; PULSE 65; RESP 18; TEMP 36.8
[2019-07-31 04:16] VITALS: BP 158/95; PULSE 76; RESP 18; TEMP 36.9
[2019-07-31 05:00] VITALS: BP 147/87; PULSE 56; RESP 18
[2019-07-31] MEDS: ferrous sulfate EC 325 mg Tablet PO (07:34)
[2019-07-31] MEDS: prenatal vitamin Capsule 1 CAP PO (07:34)
[2019-07-31] MEDS: HYDROcodone-acetaminophen 5-325 mg Tablet PO (07:34)
[2019-07-31] MEDS: docusate sodium 100 mg Capsule PO (08:40)
[2019-07-31 10:26] VITALS: BP 131/84; PULSE 74; RESP 18; TEMP 36.8
--- NOTE | 2019-07-31 11:11 | P.DS_ITS ---
Discharge Providers CHILD CARE SUPERVISOR Date of Admission: 07/26/19 12:34 Date of Discharge: 07/31/19 Attending Provider at Admission: Simon Frank MD Attending Provider at Discharge: Simon Frank MD Primary Care Provider: Dimple Cifuentes MD Diagnoses at Discharge Discharge Diagnosis (1) Status post delivery: Status: Acute Problem details: Patient is doing well this morning 72 hours post no fever baby is discharged home mom discharged with baby (2) Anemia: Status: Acute Problem details: Patient is currently on ferrous sulfate for her anemia is instructed to remain on ferrous sulfate 325 twice daily Reason for Visit Reason for Visit: Reason For Visit: induced Brief History: day 3, discharge home This young lady is 3 days status post repeat for failed trial of labor after she is doing well did have diagnosis of chorioamnionitis intrapartum has not had any fevers for 72 hours off antibiotics. Baby has received course of antibiotics mom states all labs are negative. Patient is up and about doing well having bowel movements and voiding well no fevers no chills no headaches no visual changes no right upper quadrant midepigastric pain no leg pain. She is providing self-care for her and her baby will discharge home Hospital Course Discharge Summary: See above Patient is doing well will discharge home today follow-up in 2 weeks she anticipates wanting to have subdermal hormonal contraception. Information Peripartum Data: Infant Delivery Method: Section Physical Exam Narrative: EXAM NARRATIVE: Physical examination: Vital signs are stable she is afebrile see flowsheet HEENT grossly normal Skin without rashes Lungs clear to auscultation Heart regular sinus rhythm Abdomen soft nontender good bowel sounds incision is intact no weeping slight bruising on the inferior border. Pelvic exam: Deferred Extremities grossly intact no calf tenderness negative Homans Neurologic shows normal gait patella reflexes 2/4 Urinary Catheter Management^: Mooney: Cath Placed During This Visit: yes Reason for Continuing Indwelling Catheter: Other Urinary Catheter Date of Insertion: 07/28/19 Urinary Catheter Time of Insertion: 00:42 Discharge Data Data Completed and Pending: Completed Studies During Hospitalization Category Date Time Status US OB biophysical profile without N ST [US OB BP P Ultrasound 07/26/19 12:54 Completed wo NST 19640] Urg ent Vitals: Last Vital Signs Temp 98.2 F 07/31/19 10:26 Pulse 74 07/31/19 10:26 Resp 18 07/31/19 10:26 BP 131/84 07/31/19 10:26 Pulse Ox 98 07/28/19 10:00 Discharge Plan Discharge Patient Disposition: Home, Self-Care Condition: Stable Prescriptions: New acetaminophen 325 mg Tablet 1,000 mg PO TID PRN (Reason: Mild Pain or Temp >100.4) Qty: 60 RF: 0 ibuprofen 800 mg Tablet 800 mg PO TID Qty: 90 RF: 1 hydrocodone-acetaminophen 5-325 mg Tablet 1 - 2 tab PO Q4H PRN (Reason: Moderate To Severe Pain) Qty: 20 RF: 0 ferrous sulfate 325 mg (65 mg iron) Tablet,Delayed Release (Dr/Ec) 325 mg PO BIDWM Qty: 90 RF: 1 -U 106.5-1 mg Capsule 1 cap PO BREAKFAST Qty: 90 RF: 2 Continued ferrous sulfate 325 mg (65 mg iron) tablet,delayed release (DR/EC) 325 mg PO BID Qty: 60 RF: 5 Gummies 400 mcg-35 mg- 25 mg-5 mg tablet,chewable 1 tab PO DAILY RF: 0 citalopram 10 mg tablet 10 mg PO DAILY Qty: 30 RF: 2 Discharge Orders: Discharge Order (Routine); Ordered 07/31/19 Ordered By: Dario Allison Discharge Diet: Regular Discharge Activity: Increase activity as tolerated Patient Instructions: Iron Supplements (By mouth), Vitamins (By mouth), Citalopram (By mouth), Section (DC), OB [facility], OB Discharge Report, OB Food/Drug Interaction Guide, OB Care at Home, OB Home Care, OB [facility] Parent Packet Discharge Attestations CHILD CARE SUPERVISOR Time Spent in Discharge Care*: greater than 30 min Specific Discharge Activities: Other discharge activites (optional): Examination of patient review of chart counseling for contraception preparation of discharge orders and summary Status at Discharge: Cognitive status at discharge: cognitively intact , Behavioral status at discharge: cooperative , Functional status at discharge: independent ambulation Overall status at discharge: patient is back to baseline Coding Level of Care Code Acute Supervisor [employer] for Chg Fwd History Expanded Problem Focused Exam Expanded Problem Focused Medical Decision Making Moderate Complexity Diagnoses Status post delivery Z98.891 Anemia D64.9 Time Spent (min) 35 Comment Greater than 50% of [id number] time with patient and spouse spent in counseling and chart review and completion.
[2019-07-31 11:25] VITALS: BP 144/87; PULSE 75; RESP 18; TEMP 36.8
== END 2019-07-31 11:38 | disposition home or self-care (01) | DRG 786 ==
LOC: OBGYN 12:39 → OPOB 12:39
PROVIDERS: Admitting Provider Obstetrics & Gynecology; Family Provider Family Medicine; PCP Family Medicine; Visit Provider Obstetrics & Gynecology
PROC: (CPT 59514; principal; 2019-07-28 00:40)
DX: O99.013 Anemia complicating pregnancy, third trimester (principal); O41.1230 Chorioamnionitis, third trimester, not applicable or unspecified; Z37.0 Single live birth; O48.0 Post-term pregnancy; D64.89 Other specified anemias; Z3A.41 41 weeks gestation of pregnancy; O34.219 Maternal care for unspecified type scar from previous cesarean delivery; O99.344 Other mental disorders complicating childbirth; F41.8 Other specified anxiety disorders; Z79.82 Long term (current) use of aspirin; Z79.1 Long term (current) use of non-steroidal anti-inflammatories (NSAID)
CPT/HCPCS: 12345; 36415; 51702; 59025; 59409; 76819; 84315; 85025; 85027; 86850; 86900; 96374; 96375; 98960; C9290; G0378; J0290; J0330; J0690; J1100; J1885; J2001; J2250; J2274; J2405; J2590; J2704; J2765; J2795; J3010; J3490

== ENCOUNTER → 2019-09-09 08:30 | Outpatient (BNVA) | payer MEDICAID, SELFPAY | PROVIDERS: Family Provider Family Medicine; PCP Family Medicine; Visit Provider Nurse Practitioner | DX: F41.1 Generalized anxiety disorder (principal); F40.10 Social phobia, unspecified | CPT/HCPCS: 99213 ==

== ENCOUNTER → 2019-12-12 15:09 | Outpatient (BNVA) | payer MEDICAID, SELFPAY | PROVIDERS: Family Provider Family Medicine; PCP Family Medicine; Visit Provider Nurse Practitioner Family | DX: R39.9 Unspecified symptoms and signs involving the genitourinary system (principal); Z34.90 Encounter for supervision of normal pregnancy, unspecified, unspecified trimester; N30.00 Acute cystitis without hematuria | CPT/HCPCS: 81000; 81025; 84702 ==

== ENCOUNTER 2020-08-22 04:00 | Emergency (ER) | payer MEDICAID, SELFPAY ==
[2020-08-22 04:04] VITALS: BP 146/93; PULSE 83; RESP 16; TEMP 36.6; O2SAT 98; BMI 28.9
--- NOTE | 2020-08-22 04:18 | W.ED.ABDPA2 ---
HPI - Abdominal Pain General: Chief Complaint: Abdominal Pain Stated Complaint: chest pain, ab pain, back pain Time Seen by Provider: 08/22/20 04:08 Source: patient Mode of arrival: ambulatory Limitations: no limitations History of Present Illness: HPI narrative: , Since 10 PM.Abdominal pain mostly in the left upper quadrant some in the left lower quadrant and also right upper quadrant. Mild nausea but no vomiting. Patient had 2 normal bowel movements yesterday. She denies any constipation or diarrhea or dysuria or fever or cough. She denies any blood in her urine. She states she just had a 3 weeks ago and has not had menses since then. She denies any complications from her . MD elicited complaint: abdominal pain Pertinent past history: other ( 3 weeks ago) Pain Consistency: intermittent Location: LUQ, RUQ and LLQ Severity: mild Quality: aching Radiation: none Migration to: no migration Exacerbating factors: nothing Relieving factors: nothing Associated Symptoms: Reports nausea; Denies anorexia, change in bowel habits, chills, constipation, diarrhea, dysuria, fever(s), hematochezia, hematuria, hematemesis, melena, poor appetite, syncope and vomiting Related Data: Date of Last Menstrual Period: 10/31/19 Patient : No Review of Systems Const: Denies: fever(s) or chills Eyes: Denies: change in vision ENMT: Denies: throat pain Card: Denies: syncope Resp: Denies: dyspnea or wheezing GI: Reports: abdominal pain and nausea; Denies: vomiting, hematemesis, diarrhea, constipation, change in bowel habits, hematochezia or melena : Denies: flank pain, difficulty voiding, dysuria or hematuria Musc: Denies: neck pain or back pain Skin/Breast: Denies: rash or pruritus Neuro: Denies: headache(s) or numbness in extremities Psych: Denies: anxiety Cristian/Lymph: Denies: enlarged lymph nodes PFSH ED PFSH: Medical History (Updated 08/22/20 @ 05:20 by Ladarius Adkins MD) Generalized anxiety disorder Social phobia, unspecified Surgical History S/P section 01/15/2016- Low transverse uterine incision documented by Eri Parikh at [facility] in [facility] Family History Sister Uterine cancer Mother Hypertension Grandmother Heart disease maternal Social History Smoking and tobacco status: never smoked Alcohol intake: never Female Reproductive History: Date of last menstrual period: 10/31/19 Physical Exam Const: COMMON NORMALS: no acute distress, patient oriented x3, no limitations and well nourished EXAM LIMITATIONS: altered mental status GENERAL APPEARANCE: cooperative HENMT: COMMON NORMALS: normocephalic and atraumatic HEAD & SCALP: normocephalic and atraumatic FACE & SINUS: normal facial exam Eye: COMMON NORMALS: EOMs intact bilaterally Neck/C-Spine: COMMON NORMALS: full ROM, no lymphadenopathy, supple and no meningeal signs GENERAL: Yes normal visual inspection Lymph: LYMPHATIC: no lymphadenopathy noted Chest: COMMONS NORMALS: normal inspection of the chest and normal palpation of entire chest wall CHEST: No Ecchymosis present and No rash Resp: COMMON NORMALS: normal respiratory effort, No retractions and clear to auscultation bilaterally EFFORT & INSPECTION: No respiratory distress AUSCULTATION: clear to auscultation bilaterally Cardio: COMMON NORMALS: regular rate, regular rhythm and Peripheral pulses 2+ throughout JUGULAR VENOUS DISTENTION: no JVD RATE: regular rate RHYTHM: regular rhythm PERIPHERAL PULSES: Peripheral pulses 2+ throughout GI: COMMON NORMALS: Normal to inspection, nondistended, normoactive bowel sounds present and Soft to palpation PALPATION: Yes Soft to palpation, Yes Tenderness to palpation present (GI) (Mild tenderness) Details: LLQ, LUQ and RUQ, No Hepatomegaly present, No Splenomegaly present, No Palpable mass present and No Pulsatile mass present : COMMON NORMALS: Yes no CVA tenderness BLADDER/KIDNEY EXAM: Yes no CVA tenderness Back/Pelvis: COMMON NORMALS: no CVA tenderness Extremity: COMMON NORMALS: normal to inspection, full ROM and capillary refill normal Neuro: COMMON NORMALS: patient oriented x3, CN's II-XII intact bilaterally, no focal motor deficits and no sensory deficits noted MENINGEAL SIGNS: Yes no meningeal signs Psych: COMMON NORMALS: mental status grossly normal and Normal thought process present THOUGHT PROCESS: Normal thought process present Skin: COMMON NORMALS: no rashes or lesions noted and no wounds GENERAL SKIN EXAM: no rashes or lesions noted Course Vital Signs: Vital signs: Vital Signs Temperature 97.9 F 08/22/20 04:04 Pulse Rate 83 08/22/20 04:04 Respiratory Rate 16 08/22/20 04:04 Blood Pressure 146/93 08/22/20 04:04 Pulse Oximetry 98 08/22/20 04:04 MDM - Abdominal Pain MDM Narrative: Medical decision making narrative: Nursing assessment reviewed I discussed results of labs and urine with patient. Labs and urine appear essentially normal. No evidence of infection. I offered to get CT scan of the abdomen for the patient to rule out any other pathology, but patient declined CT at this time. I encouraged her to follow-up with her primary care doctor early this week and possibly get abdominal ultrasound to look at the upper abdomen and gallbladder. Her pain may also be just due to gastritis or irritable bowel syndrome. Lab Data: Attestation: I reviewed the patient's lab results. Lab results narrative: Her labs appear normal. Labs: Lab Results 08/22/20 08/22/20 08/22/20 Range/Units 04:06 04:06 04:22 WBC 7.1 (4.0-10.0) 10^3/ uL RBC 4.84 (4.1-5.3) 10^6/u L Hgb 13.2 (11.5-15.3) g/dL Hct 42.2 (37.0-47.0) % MCV 87.2 (81-99) fL MCH 27.3 L (28.0-34.0) pg MCHC 31.3 (30.0-36.0) g/dL RDW 14.2 (12.1-15.1) % Plt Count 220 (130-400) 10^3/c mm MPV 11.4 H (7.4-10.4) fL Neut % (Auto) 41.8 % Lymph % (Auto) 47.7 % [place] % (Auto) 7.1 % Eos % (Auto) 2.5 % Baso % (Auto) 0.6 % Neut # (Auto) 2.95 (1.8-7.7) 10^3/u L Lymph # (Auto) 3.4 (0.8-4.8) 10^3/u L [place] # (Auto) 0.5 (0.2-0.9) 10^3/u L Eos # (Auto) 0.2 (0.0-0.8) 10^3/u L Baso # (Auto) 0.0 (0.0-0.1) 10^3/u L Nucleated RBC % (a uto) 0 % Nucleated RBCs # 0.0 /100WBC Sodium 139 (136-145) mmol/L Potassium 3.7 (3.5-5.1) mmol/L Chloride 101 (98-107) mmol/L Carbon Dioxide 28 (22-29) mmol/L Anion Gap 13.7 (5-19) BUN 10 (6-20) mg/dL Creatinine 0.7 (0.5-0.9) mg/dL GFR Calculation 96.4 (90-130) mL/min Glucose 104 (65-115) mg/dL Calculated Osmolal ity 287 (285-295) mOsm/k g Calcium 9.0 (8.5-10.5) mg/dL Total Bilirubin 0.2 (0.15-1.2) mg/dL AST 24 (0-32) U/L ALT 32 (0-33) U/L Alkaline Phosphata se 101 (35-105) IU/L Total Protein 7.3 (6.6-8.7) g/dL Albumin 4.4 (3.5-5.2) g/dL Globulin 2.9 (1.3-4.6) g/dL Lipase 50 (13-60) U/L Urine Color Yellow (Yellow) Urine Appearance Clear (CLEAR) Urine pH 7 (5-7) Ur Specific Gravit y 1.005 (1.005-1.030) Urine Protein Neg (Negative) Urine Glucose (UA) Norm (Normal) Urine Ketones Negative (Negative) Urine Blood Trace H (Negative) Urine Nitrate Negative (Negative) Urine Bilirubin Neg (Negative) Urine Urobilinogen Norm (Negative) mg/dL Ur Leukocyte Julisa ase Negative (Negative) Urine RBC 0-4 H (0-2) /hpf Urine WBC None (0-5) /hpf Ur Squamous Epith Cells 0-4 H (0-5) /hpf Amorphous Sediment Not Reportable Urine Bacteria None (NONE) /hpf Discharge Plan Discharge Patient Disposition: Home Clinical Impression: Abdominal pain in female patient, Abdominal pain, acute, right upper quadrant, Abdominal pain, acute, left upper quadrant Condition: Stable Prescriptions: New dicyclomine 20 mg tablet 20 mg PO QID Qty: 15 RF: 1 No Action Gummies 400 mcg-35 mg- 25 mg-5 mg tablet,chewable 1 tab PO DAILY RF: 0 citalopram 10 mg tablet 10 mg PO DAILY RF: 0 omega-3 fatty acids [Fish Oil Concentrate] 1,000 mg capsule 1,000 mg PO DAILY RF: 0 sucralfate [Carafate] 1 gram tablet 1 g PO BID 14 Days Qty: 28 RF: 1 omeprazole 20 mg capsule,delayed release(DR/EC) 20 mg PO BID 30 Days Qty: 60 RF: 5 acetaminophen 325 mg Tablet 1,000 mg PO TID PRN (Reason: Mild Pain or Temp >100.4) Qty: 60 RF: 0 -U 106.5-1 mg Capsule 1 cap PO BREAKFAST Qty: 90 RF: 2 Discharge Orders: Discharge ED (Routine); Ordered 08/22/20 Ordered By: Ladarius Adkins Referrals: Dimple Cifuentes MD [Primary Care Provider] - 1-3 days Discharge Diet: Advance as tolerated Discharge Activity: Resume usual activity Patient Instructions: Abdominal Pain (ED), Opioid Safety Activity Restrictions/Additional Instructions: Follow-up with your family doctor as directed. You may need ultrasound of your upper abdomen and or gallbladder. Avoid fatty foods. Coding Level of Care Code ED Clay Burner for Chg Fwd Exam Comprehensive
[2020-08-22] MEDS: sodium chloride 0.9% 500 ML IV (04:21)
[2020-08-22 04:26] LABS: Basophils % 0.6 %; Eosinophils # 0.2 10^3/uL (0.0-0.8); Eosinophils % 2.5 %; Hematocrit 42.2 % (37.0-47.0); Hemoglobin 13.2 g/dL (11.5-15.3); Lymphocytes # 3.4 10^3/uL (0.8-4.8); Lymphocytes % 47.7 %; Mean Corpuscular HGB Conc 31.3 g/dL (30.0-36.0); Mean Corpuscular Hemoglobin 27.3 pg (28.0-34.0); Mean Corpuscular Volume 87.2 fL (81-99); Mean Platelet Volume 11.4 fL (7.4-10.4); Monocytes # 0.5 10^3/uL (0.2-0.9); Monocytes % 7.1 %; Neutrophils # 2.95 10^3/uL (1.8-7.7); Neutrophils % 41.8 %; Nucleated Red Blood Cells % 0 %; Platelet Count 220 10^3/cmm (130-400); Red Blood Count 4.84 10^6/uL (4.1-5.3); Red Cell Distribution Width 14.2 % (12.1-15.1); White Blood Count 7.1 10^3/uL (4.0-10.0)
[2020-08-22 04:40] LABS: Add Urine Microscopic? YES; Bilirubin Urine Neg (Negative); Blood Urine Trace (Negative); Glucose Urine UA Norm (Normal); Ketones Urine Negative (Negative); Leukocyte Esterase Urine Negative (Negative); Nitrate Urine Negative (Negative); Protein Urine Neg (Negative); RBC Urine 0-4 /hpf (0-2); Specific Gravity, Urine 1.005 (1.005-1.030); Urine Appearance Clear (CLEAR); Urine Color Yellow (Yellow); Urobilinogen Urine Norm (Negative); pH Urine 7 (5-7)
[2020-08-22 04:41] LABS: Add Urine Culture? No; Squamous Epithelial Cell Urine 0-4 /hpf (0-5)
[2020-08-22 04:41] LABS: Alanine Aminotransferase 32 U/L (0-33); Albumin Level 4.4 g/dL (3.5-5.2); Alkaline Phosphatase 101 IU/L (35-105); Anion Gap 13.7 (5-19); Aspartate Amino Transferase 24 U/L (0-32); Blood Urea Nitrogen 10 mg/dL (6-20); Carbon Dioxide 28 mmol/L (22-29); Chloride 101 mmol/L (98-107); Globulin 2.9 g/dL (1.3-4.6); Glomerular Filtration Rate 96.4 mL/min (90-130); Glucose 104 mg/dL (65-115); Lipase 50 U/L (13-60); Osmolality Calculated 287 mOsm/kg (285-295); Potassium 3.7 mmol/L (3.5-5.1); Sodium 139 mmol/L (136-145); Total Bilirubin 0.2 mg/dL (0.15-1.2); Total Protein 7.3 g/dL (6.6-8.7)
[2020-08-22 05:44] VITALS: BP 112/75; PULSE 56; RESP 17; O2SAT 98
--- NOTE | 2020-08-22 06:17 | ECG_ITS ---
[facility] Test Date: 2020-08-22 Pat Name: Kenyatta Shaver Department: Room: Gender: Female Envelope Maker: : [id number] Requested By: Ladarius Medellin Order Number: [id number] Reading MD: ISABEL STEVE Measurements Intervals [place] Rate: 78 P: 97 AR: 147 QRS: 67 QRSD: 94 T: 13 QT: 381 QTc: 435 Interpretive Statements SINUS RHYTHM POSSIBLE RIGHT ATRIAL ENLARGEMENT [0.25mV P WAVE] POSSIBLE RIGHT VENTRICULAR CONDUCTION DELAY [RSR (QR) IN V1/V2] MODERATE ST DEPRESSION [0.05+ mV ST DEPRESSION] No previous ECG available for comparison Electronically Signed On 08-22-2020 19:24:35 CDT by ISABEL STEVE [id number]
== END 2020-08-22 05:44 | disposition home or self-care (01) ==
PROVIDERS: Emergency Provider Family Medicine; PCP Family Medicine
DX: R10.12 Left upper quadrant pain (principal); R10.11 Right upper quadrant pain
CPT/HCPCS: 80053; 81001; 83690; 85025; 87086; 93005; 96360; 99283; J7040

== ENCOUNTER 2020-09-06 11:11 | Outpatient (CLI) | payer MEDICAID, SELFPAY ==
--- NOTE | 2020-09-06 | CT_ITS ---
WS: [id number] CT NECK WITH CONTRAST HISTORY: JAW PAIN TECHNIQUE: Contiguous 5 mm axial images are performed through the neck with intravenous contrast. Sag ittal and coronal reformats are also submitted. All CT scans at [facility] use at least o ne of these dose optimization techniques: automated exposure control; mA and/or kV adjustment per pat ient size (includes targeted exams where dose is matched to clinical indication); or iterative recons truction. CONTRAST: CONTRAST: Omnipaque 300; 95 mL IV. DLP: 1076.5 mGycm COMPARISON: None available. Nasopharynx, oropharynx, hypopharynx and larynx are unremarkable. No soft tissue masses or abnormal e nhancement. Torus tubarius and fossa of Rosenmuller and parapharyngeal fat are normal. No significant lymphadenopathy is identified. Small bilateral cervical chain lymph nodes. No necrotic or enlarged lymph nodes. Thyroid gland and salivary glands are normally enhancing with no masses. No osseous abnormalities. Visualized portions of the skull base demonstrate no abnormalities. Orbits and globes are within norm al limits. No soft tissue masses. Visualized paranasal sinuses and mastoid air cells are normal. Lung apices are clear. CT/CT neck w con* [id number] IMPRESSION: Unremarkable neck CT.
[2020-09-06] MEDS: iohexol 300 mg/mL 100 mL Btl IV (11:32)
== END 2020-09-06 11:12 | disposition home or self-care (01) ==
PROVIDERS: PCP Family Medicine; Visit Provider Specialist
DX: R68.84 Jaw pain (principal)
CPT/HCPCS: 70491; Q9967

== ENCOUNTER → 2021-05-16 15:25 | Outpatient (BNVA) | payer MEDICAID, SELFPAY | PROVIDERS: PCP Family Medicine; Visit Provider Family Medicine | DX: Z02.0 Encounter for examination for admission to educational institution (principal); F41.1 Generalized anxiety disorder; Z13.1 Encounter for screening for diabetes mellitus; E78.1 Pure hyperglyceridemia; Z11.1 Encounter for screening for respiratory tuberculosis | CPT/HCPCS: 80053; 80061; 86787 ==

== ENCOUNTER → 2021-11-30 17:05 | Outpatient (BNVA) | payer MEDICAID, SELFPAY | PROVIDERS: PCP Family Medicine; Visit Provider Emergency Medicine | DX: R30.0 Dysuria (principal); M54.9 Dorsalgia, unspecified; Z84.1 Family history of disorders of kidney and ureter; R10.9 Unspecified abdominal pain; R31.29 Other microscopic hematuria | CPT/HCPCS: 81000; 87077; 87086; 87184 ==

== ENCOUNTER 2022-05-07 13:35 | Outpatient (REF) | payer MEDICAID, SELFPAY ==
[2022-05-07 14:25] LABS: Hepatitis B Surface AB 168.2 (11.5-1000)
[2022-05-07 15:22] LABS: Rubella IgG > 500.0 IU/mL (0.0-10.0)
[2022-05-08 11:50] LABS: Rubeola Antibody IGG >300.00 AU/mL
[2022-05-10 11:45] LABS: Quantiferon Mitogen >10.00 IU/mL; Quantiferon Nil 0.01 IU/mL; Quantiferon TB Gold NEGATIVE (NEGATIVE)
== END 2022-05-07 13:36 | disposition home or self-care (01) ==
LOC: LAB 13:35
PROVIDERS: PCP Family Medicine; Visit Provider Dermatology
DX: Z01.89 Encounter for other specified special examinations (principal)
CPT/HCPCS: 86480; 86706; 86735; 86762; 86765; 86787

== ENCOUNTER → 2022-12-02 14:08 | Outpatient (BNVA) | payer MEDICAID, SELFPAY | PROVIDERS: PCP Family Medicine; Visit Provider Family Medicine | DX: Z13.1 Encounter for screening for diabetes mellitus (principal); E78.1 Pure hyperglyceridemia; R73.9 Hyperglycemia, unspecified | CPT/HCPCS: 80053; 80061; 83036 ==

== ENCOUNTER 2023-06-14 09:45 | Outpatient (CLI) | payer OTHER, MEDICAID, SELFPAY ==
[2023-06-14 10:56] LABS: Amphetamines Screen Urine Negative (Negative); Barbiturates Screen Urine Negative (Negative); Benzodiazepines Screen Urine Negative (Negative); Cocaine Screen Urine Negative (Negative); Opiate Screen Urine Negative (Negative); PCP Screen Urine Negative (Negative); THC Screen Urine Negative (Negative)
== END 2023-06-14 09:46 | disposition home or self-care (01) ==
PROVIDERS: PCP Family Medicine; Visit Provider Emergency Medicine
DX: Z01.89 Encounter for other specified special examinations (principal)
CPT/HCPCS: 80306

== ENCOUNTER 2023-11-09 08:08 | Emergency (ER) | payer OTHER, SELFPAY ==
[2023-11-09 08:19] VITALS: BP 143/79; PULSE 82; RESP 18; TEMP 37; O2SAT 98; BMI 31.6
--- NOTE | 2023-11-09 08:29 | W.ED.EAR ---
HPI - Ear Problem General: Chief complaint: Ear Stated complaint: cant hear as normal Time Seen by Provider: 11/09/23 08:29 Source: patient Mode of arrival: ambulatory History of Present Illness: 38-year-old female presents emergency room with progressive hearing loss over the last couple of days. To the point now where she has difficulty communicating with others at conversational level which is very atypical for her. She had a little drainage from the left ear no real pain no fever. MD Complaint: ear discharge and decreased hearing Location: bilateral Relieving factors: nothing Exacerbating factors: nothing Associated symptoms: Reports hearing loss; Denies ear or mastoid pain, external ear pain, fever(s), headache(s), neck pain, rhinorrhea or tinnitus Treatment prior to arrival: none Review of Systems Const: Denies: fever(s) or chills ENMT: Reports: ear discharge and change in hearing; Denies: ear or mastoid pain, tinnitus, disequilibrium, nasal discharge or nasal congestion Card: Denies: chest pain Resp: Denies: dyspnea GI: Denies: abdominal pain : Denies: dysuria, urinary frequency or urinary urgency Musc: Denies: neck pain or back pain Skin/Breast: Denies: rash Neuro: Denies: headache(s) PFSH ED PFSH: Medical History Family history of kidney stones Social phobia, unspecified Generalized anxiety disorder Surgical History S/P section 01/15/2016- Low transverse uterine incision documented by Eri Parikh at [facility] in [facility] Family History Sister Uterine cancer Mother Hypertension Grandmother Heart disease maternal Social History Smoking and tobacco/nicotine status: never used tobacco/nicotine Alcohol intake: never Substance/Drug Use: never Physical Exam Const: GENERAL APPEARANCE: cooperative and comfortable ORIENTATION/CONSCIOUSNESS: Yes awake, Yes oriented to person, Yes oriented to place and Yes oriented to time HENMT: COMMON NORMALS: normocephalic, atraumatic and hearing grossly normal bilaterally HEAD & SCALP: normocephalic and atraumatic OTHER: Right TM has large effusion with a air-fluid level at the superior aspect of the tympanic membrane. Does not appear to be acutely infected. The left TM is mildly red and inflamed there is some exudate. There is some what appears to be wax debris could be cholesteatoma in the superior posterior aspect Resp: COMMON NORMALS: normal respiratory effort, No retractions, No use of accessory muscles and clear to auscultation bilaterally AUSCULTATION: clear to auscultation bilaterally Cardio: COMMON NORMALS: regular rate, regular rhythm and No murmurs present (Cardio) RATE: regular rate RHYTHM: regular rhythm GI: COMMON NORMALS: Soft to palpation and No hepatosplenomegaly present AUSCULTATION: Yes normoactive bowel sounds PALPATION: Yes Soft to palpation, No Tenderness to palpation present (GI), No Guarding due to palpation present (GI) and Yes No hepatosplenomegaly present Extremity: COMMON NORMALS: normal to inspection, capillary refill normal, no clubbing, cyanosis or edema, no calf tenderness and no pedal edema Neuro: SENSORIUM/ORIENTATION: Yes oriented to person, Yes oriented to place and Yes oriented to time Skin: COMMON NORMALS: no rashes or lesions noted GENERAL SKIN EXAM: no rashes or lesions noted Course Vital Signs: Vital signs: Vital Signs Temperature 98.6 F 11/09/23 08:19 Pulse Rate 82 11/09/23 08:19 Respiratory Rate 18 11/09/23 08:19 Blood Pressure 143/79 11/09/23 08:19 Pulse Oximetry 98 11/09/23 08:19 Oxygen Delivery Me thod Room Air 11/09/23 08:19 MDM - Ear Medical Decision Making Started on Corticosporin attic drops as well as Augmentin. Will also send in a steroid taper. If however follow-up with ENT. She needs further evaluation of the left ear. This may be an infection but if not clearing up may need to be evaluated for possible cholesteatoma Medical Records I reviewed the patient's medical records. Lab Data I reviewed the patient's lab results. No radiology studies performed this visit Discharge Plan Discharge Patient Disposition: Home Clinical Impression: Otitis media, Acute middle ear effusion, Hearing loss of both ears Condition: Stable Prescriptions: New gypalrmm-wiekujbin-OH 3.5-10,000-1 mg/mL-unit/mL-% drops,suspension 4 drp otic (ear) QID 10 Days Qty: 10 0RF amoxicillin 875 mg tablet 875 mg PO BID Qty: 20 0RF Medrol (Kg) 4 mg tablets,dose pack See Rx Instructions .ROUTE .COMPLEX Qty: 21 0RF Rx Instructions: orally per package directions No Action fluticasone propionate 50 mcg/actuation spray,suspension 1 spray intranasal DAILY PRN (Reason: allergy symptoms) Qty: 16 0RF Rx Instructions: administer into each nostril buspirone 10 mg tablet 10 mg PO TID MDD 30 mg 90 Days Qty: 270 3RF fluoxetine 20 mg capsule 20 mg PO DAILY 90 Days Qty: 90 3RF acetaminophen 325 mg Tablet 1,000 mg PO TID PRN (Reason: Mild Pain or Temp >100.4) Qty: 60 0RF Discharge Orders: Discharge ED (Routine); Ordered 11/09/23 Ordered By: David Land Referrals: Dimple Cifuentes MD [Primary Care Provider] - Discharge Diet: Usual diet Discharge Activity: Resume usual activity Patient Instructions: Opioid Safety, Pain Management Activity Restrictions/Additional Instructions: Thank you for choosing [facility] for your healthcare needs today. It is very important that you follow up as instructed or that you return to the Emergency Department should you have concerns or if your condition changes or worsens in any way. You were seen today for difficulty hearing. Your right ear showed a large middle ear effusion. Left ear shows some irritation of the tympanic membrane suggestive of a possible infection. These should be reevaluated by ENT within the next 2 weeks. Return to the ER or to your primary care doctor's office if you have onset of pain or fever. Case management to make follow-up appointment with ENT. Coding Level of Care Code ED Classics Professor for Renny Willson
[2023-11-09 08:54] VITALS: BP 116/85; PULSE 88; O2SAT 98
== END 2023-11-09 08:57 | disposition home or self-care (01) ==
PROVIDERS: Emergency Provider Family Medicine; PCP Family Medicine
DX: H65.191 Other acute nonsuppurative otitis media, right ear (principal); H66.92 Otitis media, unspecified, left ear; H91.93 Unspecified hearing loss, bilateral
CPT/HCPCS: 99283

== ENCOUNTER → 2024-03-28 12:00 | Outpatient (BNVA) | payer OTHER, SELFPAY | PROVIDERS: PCP Family Medicine; Visit Provider Nurse Practitioner | DX: R30.0 Dysuria (principal) | CPT/HCPCS: 81000 ==

== ENCOUNTER → 2024-06-06 08:57 | Outpatient (BNVA) | payer OTHER, SELFPAY | PROVIDERS: PCP Family Medicine; Visit Provider Family Medicine | DX: Z13.1 Encounter for screening for diabetes mellitus (principal); R53.83 Other fatigue; E78.1 Pure hyperglyceridemia; D64.9 Anemia, unspecified; E03.9 Hypothyroidism, unspecified | CPT/HCPCS: 80053; 80061; 84439; 84443; 84481; 85025 ==

== ENCOUNTER → 2025-03-23 10:31 | Outpatient (BNVA) | payer OTHER, SELFPAY | PROVIDERS: PCP Family Medicine; Visit Provider Nurse Practitioner | DX: J02.9 Acute pharyngitis, unspecified (principal) | CPT/HCPCS: 87880 ==